=== PATIENT | female | born 1980 | race Caucasian/White ===

== ENCOUNTER 2017-01-26 20:04 | Inpatient (IN) | payer MEDICAID, OTHER ==
[~2017-01-26] VITALS: Ht 157.5 cm; Wt 59.4 kg
[~2017-01-26 20:04] MED LIST: RISP2TAB76 PO
[2017-01-26] MEDS ORDERED: ARIP10TA14 PO (20:39)
[2017-01-26] MEDS ORDERED: VIST50 PO (20:39)
[2017-01-26 20:49] LABS: BASOPHILS % (AUTO) 0.7 % (0.0-2.0); EOSINOPHILS % (AUTO) 0.4 % (1.0-6.0); HEMATOCRIT 44.4 % (36-46); HEMOGLOBIN 14.5 g/dL (12.0-16.0); LYMPHOCYTES # (AUTO) 3.7 K/uL (1.0-4.8); MEAN CORPUSCULAR HEMOGLOBIN 29.5 pg (26.0-34.0); MEAN CORPUSCULAR HGB CONC 32.7 G/dL (31.0-37.0); MEAN CORPUSCULAR VOLUME 90 fL (80-100); MONOCYTES % (AUTO) 8.7 % (2.0-9.0); NEUTROPHILS # (AUTO) 7.1 K/uL (1.8-7.7); NEUTROPHILS % (AUTO) 59.2 % (40.0-70.0); PLATELET COUNT (AUTO) 232 K/uL (150-450); RED BLOOD CELL COUNT(AUTO) 4.92 MIL/uL (4.00-5.20); RED CELL DISTRIBUTION WIDTH 13.7 % (11.5-14.5)
[2017-01-26 21:02] LABS: ANION GAP 12 mmol/L (8-16); CALCIUM, TOTAL 9.4 mg/dL (8.8-10.5); CARBON DIOXIDE 26 mmol/L (22-29); CHLORIDE 103 mmol/L (98-107); CREATININE 0.86 mg/dL (0.60-1.30); GLOMERULAR FILTR. RATE CALC > 60 mL/min (>60); POTASSIUM 4.1 mmol/L (3.5-5.1); SODIUM SERUM 141 mmol/L (136-145); UREA NITROGEN, BLOOD 5 mg/dL (7-18)
[2017-01-26 21:07] LABS: ALANINE AMINOTRANSFERASE 19 U/L (12-78); ALBUMIN 4.2 g/dL (3.4-5.0); ASPARTATE AMINOTRANSFERASE 9 U/L (15-37); BILIRUBIN,TOTAL 0.6 mg/dL (0.1-1.0); TOTAL PROTEIN, SERUM 8.3 g/dL (6.4-8.2)
[2017-01-26] MEDS ORDERED: ZOLPIDEM TARTRATE 10 MG TABLET PO PRN (21:30)
[2017-01-26] MEDS ORDERED: LORazepam 2 MG TABLET PO PRN (21:30)
[2017-01-26] MEDS ORDERED: HALOPERIDOL 5 MG TABLET PO PRN (21:30)
[2017-01-26] MEDS ORDERED: IBUPROFEN 600 MG TABLET PO ONE (22:00)
[2017-01-27 01:29] VITALS: BP 117/68
[2017-01-27 08:16] VITALS: BP 111/72
[2017-01-27 16:01] VITALS: BP 109/65
[2017-01-27] MEDS: HydrOXYzine PAMOATE 50 MG CAPSULE PO SCH (16:16)
[2017-01-27] MEDS ORDERED: ACETAMINOPHEN 325 MG TABLET PO PRN (20:45)
[2017-01-28 04:27] VITALS: BP 115/75
[2017-01-28 08:14] VITALS: BP 118/65
[2017-01-28] MEDS: ARIPiprazole 10 MG TABLET PO SCH (09:01)
[2017-01-28] MEDS: HydrOXYzine PAMOATE 50 MG CAPSULE PO SCH ×2 (09:01→17:01)
[2017-01-28 16:14] VITALS: BP 119/74
[2017-01-29 06:04] VITALS: BP 114/69
[2017-01-29 08:28] VITALS: BP 126/74
[2017-01-29] MEDS: ARIPiprazole 10 MG TABLET PO SCH (09:09)
[2017-01-29] MEDS: HydrOXYzine PAMOATE 50 MG CAPSULE PO SCH ×2 (09:09→16:24)
== END 2017-01-29 17:15 | disposition home or self-care (01) | DRG 885 ==
LOC: EMS 20:05 → B2S 22:06 → B3A 23:03
PROVIDERS: ADMIT Psychiatry & Neurology Child & Adolescent Psychiatry; ATTEND Psychiatry & Neurology Child & Adolescent Psychiatry
DX: F20.0 Paranoid schizophrenia (principal); F17.210 Nicotine dependence, cigarettes, uncomplicated; F31.9 Bipolar disorder, unspecified; D72.829 Elevated white blood cell count, unspecified; F19.10 Other psychoactive substance abuse, uncomplicated; F12.90 Cannabis use, unspecified, uncomplicated; Z79.899 Other long term (current) drug therapy; Z71.51 Drug abuse counseling and surveillance of drug abuser
CPT/HCPCS: 99285; G0480

== ENCOUNTER 2020-06-19 22:16 | Emergency (ER) | payer MEDICARE, MEDICAID ==
[~2020-06-19] VITALS: Ht 162.6 cm; Wt 70.5 kg
[~2020-06-19 22:16] MED LIST changes: +ARIP10TA8 PO; +HYDR50CA9 PO; -RISP2TAB76 PO
[2020-06-19 23:02] LABS: BASOPHILS % (AUTO) 0.9 % (0.0-2.0); EOSINOPHILS % (AUTO) 0 % (1.0-6.0); HEMATOCRIT 40.7 % (36-46); HEMOGLOBIN 13.7 g/dL (12.0-16.0); LYMPHOCYTES # (AUTO) 1.8 K/uL (1.0-4.8); LYMPHOCYTES % (AUTO) 12.8 % (22.0-44.0); MEAN CORPUSCULAR HEMOGLOBIN 29.3 pg (26.0-34.0); MEAN CORPUSCULAR HGB CONC 33.6 G/dL (31.0-37.0); MEAN CORPUSCULAR VOLUME 87 fL (80-100); MONOCYTES # (AUTO) 1.3 K/uL (0.1-1.0); MONOCYTES % (AUTO) 9.2 % (2.0-9.0); NEUTROPHILS % (AUTO) 77.1 % (40.0-70.0); PLATELET COUNT (AUTO) 253 K/uL (150-450); RED BLOOD CELL COUNT(AUTO) 4.66 MIL/uL (4.00-5.20); RED CELL DISTRIBUTION WIDTH 13.9 % (11.5-14.5)
[2020-06-19 23:11] LABS: ANION GAP 6 mmol/L (8-16); CALCIUM, TOTAL 9.8 mg/dL (8.8-10.5); CARBON DIOXIDE 29 mmol/L (22-29); CHLORIDE 102 mmol/L (98-107); CREATININE 1.16 mg/dL (0.60-1.30); GLOMERULAR FILTR. RATE CALC 52 mL/min (>60); GLUCOSE,RANDOM 98 mg/dL (70-110); POTASSIUM 3.7 mmol/L (3.5-5.1); SODIUM SERUM 137 mmol/L (136-145); UREA NITROGEN, BLOOD 12 mg/dL (7-18)
[2020-06-19 23:22] LABS: ALANINE AMINOTRANSFERASE 26 U/L (12-78); ALKALINE PHOSPHATASE 112 U/L (46-116); ASPARTATE AMINOTRANSFERASE 18 U/L (15-37); BILIRUBIN,TOTAL 0.4 mg/dL (0.1-1.0); HCG,QUANTITATIVE 1 mIU/mL (0-6); TOTAL PROTEIN, SERUM 8.1 g/dL (6.4-8.2)
[2020-06-19 23:23] LABS: ACETAMINOPHEN < 2 mcg/mL (10-30)
[2020-06-19 23:38] LABS: SALICYLATE 4.7 mg/dL (2.8-20.0)
[2020-06-20 05:08] VITALS: BP 139/93
== END 2020-06-20 05:38 | disposition home or self-care (01) ==
LOC: EMS 22:16
DX: F15.10 Other stimulant abuse, uncomplicated (principal); R45.851 Suicidal ideations; F41.9 Anxiety disorder, unspecified; F31.9 Bipolar disorder, unspecified; F20.9 Schizophrenia, unspecified; F17.210 Nicotine dependence, cigarettes, uncomplicated; F12.90 Cannabis use, unspecified, uncomplicated
CPT/HCPCS: 36415; 80053; 84702; 85025; 99285; G0480; G0481